=== PATIENT | female | born 2000 | race Caucasian/White ===

== ENCOUNTER 2022-05-14 23:25 | Emergency (ER) | payer OTHER ==
[2022-05-14 23:34] VITALS: RESP 18
--- NOTE | 2022-05-14 23:53 | ED ---
Psych HPI - General Source: patient, police Mode of arrival: EMS - History of Present Illness MD Complaint: other -: hour(s) Associated Psychiatric Symptoms: suicidal ideation <Mingo Gómez - Last Filed: 05/15/22 20:48> <Demetris Kapoor - Last Filed: 05/17/22 16:34> - General Chief Complaint: Psychiatric Symptoms Stated Complaint: Police petition Time Seen by Provider: 05/14/22 23:28 - History of Present Illness Initial Comments: this patient is 21-year-old woman brought by police to have psychiatric evaluation. She reportedly had text did statements indicating suicidal intention to her mother. when I interview the patient, she is not forthcoming. (Mingo Góemz) - Related Data Home Medications Medication Instructions Recorded Confirmed Dextroamphetamine/Amphetamine 25 mg PO DAILY 05/15/22 05/15/22 [Dextroamphetamine/Amphetamine ER 25 mg Cap] buPROPion XL [Wellbutrin XL] 300 mg PO DAILY 05/15/22 05/15/22 Allergies Allergy/AdvReac Type Severity Reaction Status Date / Time No Known Allergies Allergy Verified 05/15/22 07:48 Review of Systems ROS Other: All systems not noted in ROS Statement are negative. Constitutional: Denies: fever Respiratory: Denies: cough, dyspnea Cardiovascular: Denies: chest pain, syncope Gastrointestinal: Denies: abdominal pain, vomiting, diarrhea Musculoskeletal: Denies: back pain Neurological: Denies: headache <Mingo Gómez - Last Filed: 05/15/22 20:48> ROS Other: All systems not noted in ROS Statement are negative. <Demetris Kapoor - Last Filed: 05/17/22 16:34> ROS Statement: Those systems with pertinent positive or pertinent negative responses have been documented in the HPI. General Exam General appearance: alert, in no apparent distress Head exam: Present: atraumatic, normocephalic Eye exam: Present: normal appearance. Absent: scleral icterus, conjunctival injection ENT exam: Present: normal oropharynx Neck exam: Present: normal inspection Respiratory exam: Present: normal lung sounds bilaterally. Absent: respiratory distress, wheezes, rales, rhonchi, stridor Cardiovascular Exam: Present: regular rate, normal rhythm, normal heart sounds. Absent: systolic murmur, diastolic murmur GI/Abdominal exam: Present: soft. Absent: distended, tenderness, guarding, rebound, rigid, mass Extremities exam: Present: normal inspection, normal capillary refill. Absent: pedal edema, calf tenderness Back exam: Present: normal inspection. Absent: CVA tenderness (R), CVA tenderness (L) Neurological exam: Present: alert Psychiatric exam: Present: normal affect, normal mood Skin exam: Present: warm, dry, intact, normal color. Absent: rash <Mingo Gómez - Last Filed: 05/15/22 20:48> Course Vital Signs 05/14/22 05/15/22 23:29 14:00 Temperature 98.2 F 98.0 F Pulse Rate 116 H 85 Respiratory 18 18 Rate Blood Pressure 138/65 114/75 O2 Sat by Pulse 98 100 Oximetry Medical Decision Making - Lab Data Result diagrams: 05/15/22 04:58 05/15/22 04:58 <Mingo Gómez - Last Filed: 05/15/22 20:48> - Lab Data Result diagrams: 05/15/22 04:58 05/15/22 04:58 <Demetris Kapoor - Last Filed: 05/17/22 16:34> - Medical Decision Making Patient is 21-year-old woman seen and evaluated by EPS. [place] to require further inpatient care. (Mingo Gómez) Patient was seen again by mental health services and feel patient is safe to be discharged. Patient is evaluated by myself. Patient denies any suicidal ideation at this time and does contract for safety. Patient states she does have her own psychiatrist and is agreeable to call in the morning. (Demetris Kapoor) - Lab Data Lab Results 05/14/22 05/14/22 05/15/22 Range/Units 23:45 23:45 04:58 WBC 10.4 (3.8-10.6) k/uL RBC 4.69 (3.80-5.40) m/uL Hgb 11.0 L (11.4-16.0) gm/dL Hct 35.2 (34.0-46.0) % MCV 74.9 L (80.0-100.0) fL MCH 23.5 L (25.0-35.0) pg MCHC 31.4 (31.0-37.0) g/dL RDW 15.3 (11.5-15.5) % Plt Count 348 (150-450) k/uL MPV 7.4 Neutrophils % 55 % Lymphocytes % 32 % Monocytes % 6 % Eosinophils % 4 % Basophils % 1 % Neutrophils # 5.6 (1.3-7.7) k/uL Lymphocytes # 3.3 (1.0-4.8) k/uL Monocytes # 0.6 (0-1.0) k/uL Eosinophils # 0.4 (0-0.7) k/uL Basophils # 0.1 (0-0.2) k/uL Hypochromasia Moderate Microcytosis Slight Sodium (137-145) mmol/L Potassium (3.5-5.1) mmol/L Chloride (98-107) mmol/L Carbon Dioxide (22-30) mmol/L Anion Gap mmol/L BUN (7-17) mg/dL Creatinine (0.52-1.04) mg/dL Est GFR (CKD-EPI)AfAm (>60 ml/min/1.73 sqM) Est GFR (CKD-EPI)NonAf (>60 ml/min/1.73 sqM) Glucose (74-99) mg/dL Calcium (8.4-10.2) mg/dL Urine HCG, Qual Not Detected (Not Detectd) Urine Opiates Screen Not Detected (NotDetected) Ur Oxycodone Screen Not Detected (NotDetected) Urine Methadone Screen Not Detected (NotDetected) Ur Propoxyphene Screen Not Detected (NotDetected) Ur Barbiturates Screen Not Detected (NotDetected) U Tricyclic Antidepress Not Detected (NotDetected) Ur Phencyclidine Scrn Not Detected (NotDetected) Ur Amphetamines Screen Detected H (NotDetected) U Methamphetamines Scrn Not Detected (NotDetected) U Benzodiazepines Scrn Not Detected (NotDetected) Urine Cocaine Screen Not Detected (NotDetected) U Marijuana (THC) Screen Not Detected (NotDetected) Coronavirus (PCR) (Not Detectd) 05/15/22 05/15/22 Range/Units 04:58 04:58 WBC (3.8-10.6) k/uL RBC (3.80-5.40) m/uL Hgb (11.4-16.0) gm/dL Hct (34.0-46.0) % MCV (80.0-100.0) fL MCH (25.0-35.0) pg MCHC (31.0-37.0) g/dL RDW (11.5-15.5) % Plt Count (150-450) k/uL MPV Neutrophils % % Lymphocytes % % Monocytes % % Eosinophils % % Basophils % % Neutrophils # (1.3-7.7) k/uL Lymphocytes # (1.0-4.8) k/uL Monocytes # (0-1.0) k/uL Eosinophils # (0-0.7) k/uL Basophils # (0-0.2) k/uL Hypochromasia Microcytosis Sodium 139 (137-145) mmol/L Potassium 3.8 (3.5-5.1) mmol/L Chloride 106 (98-107) mmol/L Carbon Dioxide 22 (22-30) mmol/L Anion Gap 11 mmol/L BUN 9 (7-17) mg/dL Creatinine 0.55 (0.52-1.04) mg/dL Est GFR (CKD-EPI)AfAm >90 (>60 ml/min/1.73 sqM) Est GFR (CKD-EPI)NonAf >90 (>60 ml/min/1.73 sqM) Glucose 95 (74-99) mg/dL Calcium 9.3 (8.4-10.2) mg/dL Urine HCG, Qual (Not Detectd) Urine Opiates Screen (NotDetected) Ur Oxycodone Screen (NotDetected) Urine Methadone Screen (NotDetected) Ur Propoxyphene Screen (NotDetected) Ur Barbiturates Screen (NotDetected) U Tricyclic Antidepress (NotDetected) Ur Phencyclidine Scrn (NotDetected) Ur Amphetamines Screen (NotDetected) U Methamphetamines Scrn (NotDetected) U Benzodiazepines Scrn (NotDetected) Urine Cocaine Screen (NotDetected) U Marijuana (THC) Screen (NotDetected) Coronavirus (PCR) Not Detected (Not Detectd) Disposition Is patient prescribed a controlled substance at d/c from ED?: No <Mingo Gómez - Last Filed: 05/15/22 20:48> Is patient prescribed a controlled substance at d/c from ED?: No Time of Disposition: 16:33 <Demetris Kapoor - Last Filed: 05/17/22 16:34> Clinical Impression: Mood disorder Disposition: HOME SELF-CARE Condition: Stable Instructions (If sedation given, give patient instructions): Depression (ED), Help Prevent Suicide (ED) Additional Instructions: Please follow-up with primary care physician in the next day or 2 for recheck. Please call your psychiatrist tomorrow and also do close follow-up. Return for thoughts of self-harm, worsening or changing symptoms or other concerns. Referrals: Salvatore Rizzo DO [STAFF PHYSICIAN] - 1-2 days
[2022-05-15 00:22] LABS: Amphetamine Screen,Urine Detected (NotDetected); Barbiturate Screen,Urine Not Detected (NotDetected); Benzodiazepines Screen,Urine Not Detected (NotDetected); Cocaine Screen,Urine Not Detected (NotDetected); Methadone Screen, Urine Not Detected (NotDetected); Opiate Screen,Urine Not Detected (NotDetected); Oxycodone Screen, Urine Not Detected (NotDetected); Phencyclidine Screen,Urine Not Detected (NotDetected); Tricyclic Antidepressant,Urine Not Detected (NotDetected); Urn Cannabinoid Scrn Not Detected (NotDetected)
[2022-05-15 05:08] LABS: Basophils # (A) 0.1 k/uL (0-0.2); Basophils % (A) 1 %; Eosinophils # (A) 0.4 k/uL (0-0.7); Eosinophils % (A) 4 %; HCT 35.2 % (34.0-46.0); Hypochromasia Moderate; Lymphocytes # (A) 3.3 k/uL (1.0-4.8); Lymphocytes % (A) 32 %; MCH 23.5 pg (25.0-35.0); MCHC 31.4 g/dL (31.0-37.0); MCV 74.9 fL (80.0-100.0); Mean Platelet Volume 7.4; Microcytosis Slight; Monocytes # (A) 0.6 k/uL (0-1.0); Monocytes % (A) 6 %; Neutrophils # (A) 5.6 k/uL (1.3-7.7); Neutrophils % (A) 55 %; Platelet Count 348 k/uL (150-450); RBC 4.69 m/uL (3.80-5.40); RDW 15.3 % (11.5-15.5); WBC 10.4 k/uL (3.8-10.6)
[2022-05-15 05:17] LABS: African American GFR (CKD) >90 (>60 ml/min/1.73 sqM); Anion Gap 11 mmol/L; Blood Urea Nitrogen 9 mg/dL (7-17); Calcium 9.3 mg/dL (8.4-10.2); Carbon Dioxide 22 mmol/L (22-30); Chloride 106 mmol/L (98-107); Glucose 95 mg/dL (74-99); Non-African American GFR(CKD) >90 (>60 ml/min/1.73 sqM); Potassium 3.8 mmol/L (3.5-5.1); Sodium 139 mmol/L (137-145)
[2022-05-16] MEDS ORDERED: buPROPion XL 300 MG TAB.ER.24H PO STA (22:15)
[2022-05-16] MEDS ORDERED: MD COMMUNICATION TO PHARMACY 1 EACH MISC PO PRN (22:16)
[2022-05-17] MEDS ORDERED: ADDERALL 25 MG PO SCH (09:00)
[2022-05-17 16:42] VITALS: BP 112/70; PULSE 81; TEMP 98.2
== END 2022-05-17 16:41 | disposition home or self-care (01) ==
LOC: EC 23:25
DX: F39 Unspecified mood [affective] disorder (principal); Z20.822 Contact with and (suspected) exposure to COVID-19
CPT/HCPCS: 36415; 80048; 80306; 81025; 82075; 85025; 87635; 99285